=== PATIENT | male | born 1945 | race Caucasian/White ===

== ENCOUNTER 2021-02-20 11:05 | Outpatient (CLI) | payer MEDICARE, OTHER | END 2021-02-20 11:06 | disposition home or self-care (01) | LOC: CSHCT 11:05 | PROVIDERS: ATTEND Nurse Practitioner Family | DX: M25.511 Pain in right shoulder (principal); R93.6 Abnormal findings on diagnostic imaging of limbs ==

== ENCOUNTER 2021-03-17 08:25 | Day surgery (SDC) | payer MEDICARE, OTHER ==
[2021-03-17] MEDS ORDERED: Lidocaine 1% PF 5 ML VIAL ONE (08:44)
[2021-03-17] MEDS ORDERED: Sodium Bicarbonate 2.5 MEQ/5 ML VIAL ONE (08:44)
[2021-03-17 09:08] VITALS: BP 131/87; TEMP 97.4
== END 2021-03-17 10:10 | disposition home or self-care (01) ==
LOC: CSHRAD 08:25
PROVIDERS: ATTEND Neurological Surgery
DX: M54.12 Radiculopathy, cervical region (principal); M54.50 Low back pain, unspecified; M54.2 Cervicalgia; I10 Essential (primary) hypertension; G89.29 Other chronic pain; Z79.899 Other long term (current) drug therapy
CPT/HCPCS: 72040; 72100; 77002

== ENCOUNTER 2021-09-29 12:33 | Outpatient (CLI) | payer MEDICARE | END 2021-09-29 12:34 | disposition home or self-care (01) | LOC: CSHCT 12:33 | PROVIDERS: ATTEND Neurological Surgery | DX: M48.04 Spinal stenosis, thoracic region (principal); M48.062 Spinal stenosis, lumbar region with neurogenic claudication; M51.34 Other intervertebral disc degeneration, thoracic region; M51.24 Other intervertebral disc displacement, thoracic region; Z98.890 Other specified postprocedural states | CPT/HCPCS: 72131; 72157; 72158; 82565 ==

== ENCOUNTER 2022-07-06 08:50 | Day surgery (SDC) | payer MEDICARE ==
[2022-07-01 14:27] VITALS: BMI 29.5
[2022-07-06] MEDS ORDERED: Neomycin-Polymyxin 1 ML AMP ONE (10:21)
[2022-07-06] MEDS ORDERED: Bupivacaine PF 0.5% 30 ML VIAL ONE (10:21)
[2022-07-06] MEDS ORDERED: Clindamycin/D5W 900 mg/50 ml Premix Bag ONE (11:24)
[2022-07-06] MEDS ORDERED: PROPOFOL 20 ML ONE (12:02)
[2022-07-06] MEDS ORDERED: Fentanyl 100 MCG/2 ML VIAL ONE (12:02)
[2022-07-06] MEDS ORDERED: Lidocaine 2% PF 5 ML VIAL ONE (12:02)
[2022-07-06] MEDS ORDERED: Ondansetron PF 4 MG/2 ML Vial ONE (12:03)
[2022-07-06] MEDS ORDERED: Famotidine/PF 20 mg/2ml Vial ONE (12:04)
[2022-07-06] MEDS ORDERED: ePHEDrine Sulfate 50 MG/10 ML VIAL ONE (12:45)
== END 2022-07-06 14:45 | disposition home or self-care (01) ==
LOC: CSHSDC 08:50
PROVIDERS: ATTEND Podiatrist Foot & Ankle Surgery
PROC: 0SGP04Z Fusion of Right Toe Phalangeal Joint with Internal Fixation Device, Open Approach (ICD-10-PCS; principal; 2022-07-06)
DX: Z01.818 Encounter for other preprocedural examination (principal); S92.421A Displaced fracture of distal phalanx of right great toe, initial encounter for closed fracture; M19.171 Post-traumatic osteoarthritis, right ankle and foot; J45.909 Unspecified asthma, uncomplicated; K21.9 Gastro-esophageal reflux disease without esophagitis; E29.1 Testicular hypofunction; Z79.899 Other long term (current) drug therapy
CPT/HCPCS: J2001; J2405; J2704; J3010; J3490; S0020; S0028

== ENCOUNTER 2022-07-27 09:13 | Day surgery (SDC) | payer MEDICARE ==
[2022-07-23 11:35] VITALS: BMI 29.7
[2022-07-27] MEDS ORDERED: Bupivacaine PF 0.5% 30 ML VIAL ONE (11:07)
[2022-07-27] MEDS ORDERED: Neomycin-Polymyxin 1 ML AMP ONE (11:08)
[2022-07-27] MEDS ORDERED: Clindamycin/D5W 600 mg/50 ml Premix Bag ONE (11:15)
[2022-07-27] MEDS ORDERED: Fentanyl 100 MCG/2 ML VIAL ONE (11:38)
[2022-07-27] MEDS ORDERED: PROPOFOL 20 ML ONE (11:38)
[2022-07-27] MEDS ORDERED: Ondansetron PF 4 MG/2 ML Vial ONE (12:12)
== END 2022-07-27 13:30 | disposition home or self-care (01) ==
LOC: CSHSDC 09:13
PROVIDERS: ATTEND Podiatrist Foot & Ankle Surgery
PROC: 0SGP04Z Fusion of Right Toe Phalangeal Joint with Internal Fixation Device, Open Approach (ICD-10-PCS; principal; 2022-07-27)
DX: T84.196A Other mechanical complication of internal fixation device of bone of right lower leg, initial encounter (principal); J45.909 Unspecified asthma, uncomplicated; K21.9 Gastro-esophageal reflux disease without esophagitis; E78.00 Pure hypercholesterolemia, unspecified; J44.9 Chronic obstructive pulmonary disease, unspecified; Z79.899 Other long term (current) drug therapy; Y83.1 Surgical operation with implant of artificial internal device as the cause of abnormal reaction of the patient, or of later complication, without mention of misadventure at the time of the procedure
CPT/HCPCS: J2405; J2704; J3010; J3490; S0020

== ENCOUNTER 2023-02-20 18:27 | Inpatient (IN) | payer MEDICARE ==
[2023-02-20] MEDS ORDERED: Senokot S 8.6-50 MG TAB PO PRN (22:34)
[2023-02-20] MEDS ORDERED: Gabapentin 300 MG CAP PO SCH (22:45)
[2023-02-20] MEDS ORDERED: Vancomycin HCl 750 MG in Sodium Chloride 0.9% 250 ML 250 ML IVPB SCH (22:45)
[2023-02-20] MEDS: Morphine 4 MG/ML VIAL SLOW IVP PRN (22:48)
[2023-02-20] MEDS: HYDROcodone/Acetaminophen 7.5/325 mg Tablet PO PRN (23:06)
[2023-02-20] MEDS: Sodium Chloride 0.9% 1,000 ML IV SCH (23:23)
[2023-02-20 23:25] LABS: Magnesium 1.6 mg/dL (1.6-2.6)
[2023-02-21] MEDS: Clindamycin/D5W 900 MG in Premix 1 BAG IVPB SCH ×3 (00:53→16:04)
[2023-02-21] MEDS ORDERED: traZODone HCl 50 MG TAB PO SCH ×2 (01:30→21:00)
[2023-02-21] MEDS: Morphine 4 MG/ML VIAL SLOW IVP PRN ×3 (02:43→15:47)
[2023-02-21] MEDS: HYDROcodone/Acetaminophen 7.5/325 mg Tablet PO PRN (02:53)
[2023-02-21 05:20] LABS: #Basophils 0.1 10x3/uL (0.0-0.2); #Eosinphils 0.6 10x3/uL (0.0-0.5); #Neutrophils 8.3 10x3/uL (1.5-8.4); %Basophils 0.6 % (0.0-2.0); %Eosinophils 5.3 % (0.0-6.0); %Lymphocytes 10.7 % (18.0-47.0); %Monocytes 9.1 % (0.0-10.0); %Neutrophils 73.9 % (40.0-75.0); Hematocrit 41.3 % (38.8-50.0); Hemoglobin 13.9 g/dL (13.5-17.5); Mean Corpuscular HGB CONC 33.7 g/dL (32.0-36.0); Mean Corpuscular Hemoglobin 34.1 pg (27.0-33.0); Mean Corpuscular Volume 101.2 fl (81.2-95.1); Mean Platelet Volume 10.9 fl (7.4-10.4); Platelet Count 147 10x3/uL (150-450); RBC Distribution Width 14.3 % (11.5-14.5); Red Blood Cell (RBC) Count 4.08 10x6/uL (4.32-5.72); White Blood Cell (WBC) Count 11.2 10x3/uL (3.5-10.5)
[2023-02-21 05:25] LABS: Anion Gap 15 mmol/L (10-20); BUN (Urea Nitrogen) 9 mg/dL (8.4-25.7); Calc. Creatinine Clearance 91 mL/min (70-130); Calcium 8.8 mg/dL (7.8-10.44); Carbon Dioxide 24 mmol/L (23-31); Chloride 103 mmol/L (98-107); Estimated GFR 92; Glucose 98 mg/dL (83-110); Potassium 4.2 mmol/L (3.5-5.1); Sodium 138 mmol/L (136-145)
[2023-02-21] MEDS ORDERED: VANCOMYCIN 1.25 GM/250 ML BAG 1.25 GM in Premix 1 BAG IVPB SCH ×2 (06:00→18:00)
[2023-02-21] MEDS: Aztreonam 1 GM in Sodium Chloride 0.9% 100 ML IVPB SCH ×3 (06:01→20:41)
[2023-02-21] MEDS ORDERED: VANCOMYCIN 1.25 GM/250 ML BAG IVPB SCH ×2 (06:30→09:00)
[2023-02-21] MEDS: VANCOMYCIN 1.75 GM/350 ML BAG 1.75 GM in Premix 1 BAG IVPB SCH (06:52)
[2023-02-21] MEDS: Hydrocodone-Acetamin 15 ML UDCUP PO PRN ×3 (07:40→20:41)
[2023-02-21] MEDS ORDERED: Aztreonam 1 GM in Sodium Chloride 0.9% 100 ML IVPB SCH (08:00)
[2023-02-21 08:20] LABS: Amphetamine Not Detected (NotDetected); Barbiturates Screen Not Detected (NotDetected); Benzodiazepine Screen Not Detected (NotDetected); Cocaine Metabolite Screen Not Detected (NotDetected); Methadone Not Detected (NotDetected); Methamphetamine Detected (NotDetected); Opiate Screen Detected (NotDetected); Oxycodone Screen Not Detected (NotDetected); Phencyclidine (PCP) Not Detected (NotDetected); THC/Cannabinoid Screen Not Detected (NotDetected); Tricyclic Screen Not Detected (NotDetected)
[2023-02-21] MEDS ORDERED: FLU VACC QS2023(65UP)/MF59C/PF 60 MCG/0.5 ML SYRINGE IM ONE (09:00)
[2023-02-21] MEDS ORDERED: Non-Formulary Medication 1 EACH (Mecobalamin [B12 Active] 1,000 MCG Tab.Chew) PO SCH (09:00)
[2023-02-21] MEDS: busPIRone HCl 5 MG TAB PO SCH ×2 (10:07→20:39)
[2023-02-21] MEDS: Gabapentin 300 MG CAP PO SCH ×3 (10:07→20:40)
[2023-02-21] MEDS: DULoxetine 30 MG CAP PO SCH ×2 (10:07→20:40)
[2023-02-21] MEDS: Magnesium Oxide 400 MG TAB PO SCH (10:08)
[2023-02-21] MEDS ORDERED: Colchicine 0.6 MG TAB PO SCH ×2 (10:45→11:45)
[2023-02-21] MEDS: Sodium Chloride 0.9% 1,000 ML IV SCH (12:25)
[2023-02-21 12:47] LABS: Uric Acid 4.4 mg/dL (3.5-7.2)
[2023-02-21] MEDS: traZODone HCl 50 MG TAB PO SCH (20:39)
[2023-02-21] MEDS: Pramipexole Di-HCl 1 MG TAB PO SCH (20:40)
[2023-02-21] MEDS: Tamsulosin HCl 0.4 MG CAP PO SCH (20:40)
[2023-02-21] MEDS: Prazosin HCl 1 MG CAP PO SCH (20:41)
[2023-02-22] MEDS: Clindamycin/D5W 900 MG in Premix 1 BAG IVPB SCH ×3 (00:46→16:49)
[2023-02-22] MEDS: Sodium Chloride 0.9% 1,000 ML IV SCH ×2 (00:49→20:43)
[2023-02-22] MEDS: Aztreonam 1 GM in Sodium Chloride 0.9% 100 ML IVPB SCH ×3 (04:52→20:46)
[2023-02-22] MEDS: Hydrocodone-Acetamin 15 ML UDCUP PO PRN ×3 (05:20→20:49)
[2023-02-22] MEDS: VANCOMYCIN 1.75 GM/350 ML BAG 1.75 GM in Premix 1 BAG IVPB SCH (05:36)
[2023-02-22] MEDS: DULoxetine 30 MG CAP PO SCH ×2 (08:37→20:44)
[2023-02-22] MEDS: Colchicine 0.6 MG TAB PO SCH (08:37)
[2023-02-22] MEDS: busPIRone HCl 5 MG TAB PO SCH ×2 (08:37→20:46)
[2023-02-22] MEDS: Magnesium Oxide 400 MG TAB PO SCH (08:37)
[2023-02-22] MEDS: Gabapentin 300 MG CAP PO SCH ×2 (09:15→17:52)
[2023-02-22] MEDS: Morphine 4 MG/ML VIAL SLOW IVP PRN (12:43)
[2023-02-22] MEDS: LACTINEX 1 TAB PO SCH (17:04)
[2023-02-22] MEDS: traZODone HCl 50 MG TAB PO SCH (20:44)
[2023-02-22] MEDS: Tamsulosin HCl 0.4 MG CAP PO SCH (20:44)
[2023-02-22] MEDS: Prazosin HCl 1 MG CAP PO SCH (20:44)
[2023-02-22] MEDS: Pramipexole Di-HCl 1 MG TAB PO SCH (20:44)
[2023-02-22] MEDS: Gabapentin 100 MG CAP PO SCH (20:45)
[2023-02-22] MEDS ORDERED: Gabapentin 300 MG CAP PO SCH (21:00)
[2023-02-23] MEDS: Clindamycin/D5W 900 MG in Premix 1 BAG IVPB SCH ×3 (00:52→17:00)
[2023-02-23] MEDS: Aztreonam 1 GM in Sodium Chloride 0.9% 100 ML IVPB SCH ×3 (04:41→21:27)
[2023-02-23 04:52] LABS: #Basophils 0.1 10x3/uL (0.0-0.2); #Eosinphils 0.4 10x3/uL (0.0-0.5); #Monocytes 0.9 10x3/uL (0.0-1.1); #Neutrophils 5.9 10x3/uL (1.5-8.4); %Basophils 0.8 % (0.0-2.0); %Eosinophils 5.2 % (0.0-6.0); %Lymphocytes 12.6 % (18.0-47.0); %Monocytes 10.6 % (0.0-10.0); %Neutrophils 70.4 % (40.0-75.0); Hematocrit 39.5 % (38.8-50.0); Hemoglobin 13.4 g/dL (13.5-17.5); Mean Corpuscular HGB CONC 33.9 g/dL (32.0-36.0); Mean Corpuscular Hemoglobin 34.1 pg (27.0-33.0); Mean Corpuscular Volume 100.5 fl (81.2-95.1); Mean Platelet Volume 9.9 fl (7.4-10.4); Platelet Count 141 10x3/uL (150-450); RBC Distribution Width 13.8 % (11.5-14.5); Red Blood Cell (RBC) Count 3.93 10x6/uL (4.32-5.72); White Blood Cell (WBC) Count 8.4 10x3/uL (3.5-10.5)
[2023-02-23 05:07] LABS: Anion Gap 14 mmol/L (10-20); BUN (Urea Nitrogen) 8 mg/dL (8.4-25.7); Calc. Creatinine Clearance 97 mL/min (70-130); Calcium 8.3 mg/dL (7.8-10.44); Carbon Dioxide 27 mmol/L (23-31); Chloride 100 mmol/L (98-107); Estimated GFR 94; Glucose 103 mg/dL (83-110); Potassium 3.7 mmol/L (3.5-5.1); Sodium 137 mmol/L (136-145)
[2023-02-23 05:34] LABS: Prothrombin Time 10.9 sec (9.5-12.1)
[2023-02-23 05:46] LABS: Vancomycin, Trough 10.4 ug/mL
[2023-02-23] MEDS: Vancomycin 1 GM in Sodium Chloride 0.9% 250 ML 250 ML IVPB SCH ×2 (06:18→18:57)
[2023-02-23] MEDS: VANCOMYCIN 1.75 GM/350 ML BAG 1.75 GM in Premix 1 BAG IVPB SCH (06:19)
[2023-02-23] MEDS: Morphine 4 MG/ML VIAL SLOW IVP PRN ×2 (08:40→21:56)
[2023-02-23] MEDS: LACTINEX 1 TAB PO SCH ×3 (08:51→18:57)
[2023-02-23] MEDS: Colchicine 0.6 MG TAB PO SCH (08:51)
[2023-02-23] MEDS: Gabapentin 100 MG CAP PO SCH ×3 (08:52→21:32)
[2023-02-23] MEDS: busPIRone HCl 5 MG TAB PO SCH ×2 (08:52→21:31)
[2023-02-23] MEDS: DULoxetine 30 MG CAP PO SCH ×2 (08:52→21:32)
[2023-02-23] MEDS: Magnesium Oxide 400 MG TAB PO SCH (08:52)
[2023-02-23] MEDS: Sodium Chloride 0.9% 1,000 ML IV SCH ×2 (09:10→21:43)
[2023-02-23 12:54] LABS: Hemoglobin A1c 4.7 % (4.0-6.0)
[2023-02-23] MEDS: Hydrocodone-Acetamin 15 ML UDCUP PO PRN ×2 (13:23→21:54)
[2023-02-23] MEDS ORDERED: Lidocaine 1% PF 5 ML VIAL ONE (15:46)
[2023-02-23] MEDS ORDERED: PROPOFOL 20 ML ONE (15:46)
[2023-02-23] MEDS ORDERED: fentaNYL 50 mcg/mL 1 mL Vial ONE (15:46)
[2023-02-23] MEDS ORDERED: Ondansetron PF 4 MG/2 ML Vial ONE (15:46)
[2023-02-23] MEDS ORDERED: Dexamethasone 4 mg/ml Vial ONE (15:46)
[2023-02-23] MEDS ORDERED: PHENYLEPHRINE-NS 100 MCG/ML 10 ML SYRINGE ONE (16:11)
[2023-02-23] MEDS ORDERED: Bupivacaine PF 0.5% 30 ML VIAL ONE (16:37)
[2023-02-23] MEDS: traZODone HCl 50 MG TAB PO SCH (21:33)
[2023-02-23] MEDS: Prazosin HCl 1 MG CAP PO SCH (21:55)
[2023-02-23] MEDS: Pramipexole Di-HCl 1 MG TAB PO SCH (21:55)
[2023-02-23] MEDS: Tamsulosin HCl 0.4 MG CAP PO SCH (21:58)
[2023-02-24] MEDS: Clindamycin/D5W 900 MG in Premix 1 BAG IVPB SCH ×3 (01:05→16:42)
[2023-02-24] MEDS: Aztreonam 1 GM in Sodium Chloride 0.9% 100 ML IVPB SCH ×3 (04:00→22:04)
[2023-02-24 04:28] LABS: #Basophils 0.1 10x3/uL (0.0-0.2); #Monocytes 0.5 10x3/uL (0.0-1.1); %Basophils 0.8 % (0.0-2.0); %Eosinophils 0.1 % (0.0-6.0); %Lymphocytes 10.6 % (18.0-47.0); %Monocytes 6.1 % (0.0-10.0); %Neutrophils 81.7 % (40.0-75.0); Hematocrit 40.1 % (38.8-50.0); Hemoglobin 13.7 g/dL (13.5-17.5); Mean Corpuscular HGB CONC 34.2 g/dL (32.0-36.0); Mean Corpuscular Volume 99.5 fl (81.2-95.1); Mean Platelet Volume 10.4 fl (7.4-10.4); Platelet Count 167 10x3/uL (150-450); RBC Distribution Width 13.2 % (11.5-14.5); Red Blood Cell (RBC) Count 4.03 10x6/uL (4.32-5.72); White Blood Cell (WBC) Count 7.4 10x3/uL (3.5-10.5)
[2023-02-24 04:43] LABS: Anion Gap 13 mmol/L (10-20); BUN (Urea Nitrogen) 10 mg/dL (8.4-25.7); Calc. Creatinine Clearance 104 mL/min (70-130); Calcium 8.2 mg/dL (7.8-10.44); Carbon Dioxide 27 mmol/L (23-31); Chloride 101 mmol/L (98-107); Estimated GFR 96; Glucose 101 mg/dL (83-110); Sodium 137 mmol/L (136-145)
[2023-02-24] MEDS: Vancomycin 1 GM in Sodium Chloride 0.9% 250 ML 250 ML IVPB SCH ×2 (06:00→17:37)
[2023-02-24] MEDS: Hydrocodone-Acetamin 15 ML UDCUP PO PRN ×4 (06:32→22:02)
[2023-02-24] MEDS: Morphine 4 MG/ML VIAL SLOW IVP PRN (06:33)
[2023-02-24] MEDS: Gabapentin 100 MG CAP PO SCH ×3 (08:46→22:05)
[2023-02-24] MEDS ORDERED: Morphine 4 MG/ML VIAL SLOW IVP SCH ×2 (09:00)
[2023-02-24] MEDS ORDERED: Ketorolac Tromethamine 30 MG/ML VIAL IVP SCH (09:00)
[2023-02-24] MEDS: busPIRone HCl 5 MG TAB PO SCH ×2 (09:16→22:06)
[2023-02-24] MEDS: Colchicine 0.6 MG TAB PO SCH (09:16)
[2023-02-24] MEDS: Magnesium Oxide 400 MG TAB PO SCH (09:16)
[2023-02-24] MEDS: DULoxetine 30 MG CAP PO SCH ×2 (09:16→22:06)
[2023-02-24] MEDS: LACTINEX 1 TAB PO SCH ×3 (09:16→16:43)
[2023-02-24] MEDS: Sodium Chloride 0.9% 1,000 ML IV SCH (12:22)
[2023-02-24] MEDS ORDERED: Polyethylene Glycol 3350 17 GM Packet PO SCH (14:45)
[2023-02-24 17:18] LABS: Vancomycin, Trough 16.1 ug/mL
[2023-02-24] MEDS: Pramipexole Di-HCl 1 MG TAB PO SCH (22:05)
[2023-02-24] MEDS: Tamsulosin HCl 0.4 MG CAP PO SCH (22:05)
[2023-02-24] MEDS: Prazosin HCl 1 MG CAP PO SCH (22:05)
[2023-02-24] MEDS: Senokot S 8.6-50 MG TAB PO SCH (22:06)
[2023-02-24] MEDS: traZODone HCl 50 MG TAB PO SCH (22:06)
[2023-02-25] MEDS: Clindamycin/D5W 900 MG in Premix 1 BAG IVPB SCH ×3 (01:44→16:16)
[2023-02-25] MEDS: Hydrocodone-Acetamin 15 ML UDCUP PO PRN ×4 (02:10→16:17)
[2023-02-25] MEDS: Sodium Chloride 0.9% 1,000 ML IV SCH ×2 (02:10→16:51)
[2023-02-25] MEDS: Aztreonam 1 GM in Sodium Chloride 0.9% 100 ML IVPB SCH ×3 (04:56→20:39)
[2023-02-25] MEDS: Vancomycin 1 GM in Sodium Chloride 0.9% 250 ML 250 ML IVPB SCH ×2 (05:06→17:14)
[2023-02-25] MEDS: LACTINEX 1 TAB PO SCH ×3 (08:05→16:17)
[2023-02-25] MEDS: Polyethylene Glycol 3350 17 GM Packet PO SCH (08:05)
[2023-02-25] MEDS: busPIRone HCl 5 MG TAB PO SCH ×2 (08:05→21:14)
[2023-02-25] MEDS: DULoxetine 30 MG CAP PO SCH ×2 (08:06→21:15)
[2023-02-25] MEDS: Magnesium Oxide 400 MG TAB PO SCH (08:06)
[2023-02-25] MEDS: Gabapentin 100 MG CAP PO SCH ×3 (08:06→21:15)
[2023-02-25] MEDS: Ondansetron ODT 4 MG TAB PO PRN ×2 (16:16→23:12)
[2023-02-25] MEDS: traZODone HCl 50 MG TAB PO SCH (21:14)
[2023-02-25] MEDS: Pramipexole Di-HCl 1 MG TAB PO SCH (21:15)
[2023-02-25] MEDS: Tamsulosin HCl 0.4 MG CAP PO SCH (21:15)
[2023-02-25] MEDS: Prazosin HCl 1 MG CAP PO SCH (21:15)
[2023-02-25 21:20] VITALS: BMI 32.7
[2023-02-25] MEDS: Senokot S 8.6-50 MG TAB PO SCH (21:20)
[2023-02-26] MEDS: Clindamycin/D5W 900 MG in Premix 1 BAG IVPB SCH ×2 (00:53→08:44)
[2023-02-26] MEDS: Aztreonam 1 GM in Sodium Chloride 0.9% 100 ML IVPB SCH ×2 (03:32→12:13)
[2023-02-26 05:22] LABS: Vancomycin, Trough 15.3 ug/mL
[2023-02-26] MEDS: Vancomycin 1 GM in Sodium Chloride 0.9% 250 ML 250 ML IVPB SCH ×2 (06:12→19:10)
[2023-02-26] MEDS: Sodium Chloride 0.9% 1,000 ML IV SCH ×2 (06:12→21:46)
[2023-02-26] MEDS: busPIRone HCl 5 MG TAB PO SCH ×2 (08:44→21:30)
[2023-02-26] MEDS: Magnesium Oxide 400 MG TAB PO SCH (08:44)
[2023-02-26] MEDS: LACTINEX 1 TAB PO SCH ×3 (08:44→16:13)
[2023-02-26] MEDS: DULoxetine 30 MG CAP PO SCH ×2 (08:44→21:29)
[2023-02-26] MEDS: Gabapentin 100 MG CAP PO SCH ×3 (08:44→21:29)
[2023-02-26] MEDS: Polyethylene Glycol 3350 17 GM Packet PO SCH (08:45)
[2023-02-26] MEDS: Hydrocodone-Acetamin 15 ML UDCUP PO PRN ×2 (08:57→21:31)
[2023-02-26] MEDS: Tamsulosin HCl 0.4 MG CAP PO SCH (21:30)
[2023-02-26] MEDS: Senokot S 8.6-50 MG TAB PO SCH (21:30)
[2023-02-26] MEDS: traZODone HCl 50 MG TAB PO SCH (21:30)
[2023-02-26] MEDS: Prazosin HCl 1 MG CAP PO SCH (21:31)
[2023-02-26] MEDS: Pramipexole Di-HCl 1 MG TAB PO SCH (21:47)
[2023-02-27 06:28] LABS: Anion Gap 13 mmol/L (10-20); BUN (Urea Nitrogen) 5 mg/dL (8.4-25.7); CRP (Inflammatory) 1.36 mg/dL (= or < 0.5); Calc. Creatinine Clearance 120 mL/min (70-130); Calcium 8.9 mg/dL (7.8-10.44); Carbon Dioxide 25 mmol/L (23-31); Chloride 104 mmol/L (98-107); Estimated GFR 95; Glucose 88 mg/dL (83-110); Potassium 3.1 mmol/L (3.5-5.1); Sodium 139 mmol/L (136-145)
[2023-02-27] MEDS: Vancomycin 1 GM in Sodium Chloride 0.9% 250 ML 250 ML IVPB SCH ×2 (07:10→18:38)
[2023-02-27] MEDS: Hydrocodone-Acetamin 15 ML UDCUP PO PRN ×4 (07:10→20:15)
[2023-02-27] MEDS ORDERED: Electrolyte Replacement Protocol 1 EACH FS PRN (07:39)
[2023-02-27] MEDS ORDERED: hydrALAZINE 20 MG/ML VIAL SLOW IVP PRN (07:41)
[2023-02-27] MEDS: Gabapentin 100 MG CAP PO SCH ×3 (08:30→20:13)
[2023-02-27] MEDS: LACTINEX 1 TAB PO SCH ×3 (08:30→16:06)
[2023-02-27] MEDS: Magnesium Oxide 400 MG TAB PO SCH (08:30)
[2023-02-27] MEDS: DULoxetine 30 MG CAP PO SCH ×2 (08:30→20:15)
[2023-02-27] MEDS: busPIRone HCl 5 MG TAB PO SCH ×2 (08:30→20:15)
[2023-02-27] MEDS: Polyethylene Glycol 3350 17 GM Packet PO SCH (08:31)
[2023-02-27 09:00] LABS: Magnesium 1.7 mg/dL (1.6-2.6)
[2023-02-27] MEDS ORDERED: Potassium Chloride 20 MEQ TAB PO SCH ×2 (09:00→16:30)
[2023-02-27] MEDS ORDERED: Amlodipine 5 MG TAB PO SCH (09:00)
[2023-02-27] MEDS ORDERED: Magnesium 2 GM/50 ML(in water) 2 GM in Premix 1 BAG IVPB SCH (11:00)
[2023-02-27] MEDS: Ibuprofen 600 MG TAB PO PRN (11:20)
[2023-02-27 15:05] LABS: Potassium 3.2 mmol/L (3.5-5.1)
[2023-02-27] MEDS: Senokot S 8.6-50 MG TAB PO SCH (20:12)
[2023-02-27] MEDS: Pramipexole Di-HCl 1 MG TAB PO SCH (20:13)
[2023-02-27] MEDS: Prazosin HCl 1 MG CAP PO SCH (20:13)
[2023-02-27] MEDS: Tamsulosin HCl 0.4 MG CAP PO SCH (20:14)
[2023-02-27] MEDS: traZODone HCl 50 MG TAB PO SCH (20:14)
[2023-02-28] MEDS: Hydrocodone-Acetamin 15 ML UDCUP PO PRN ×5 (04:28→21:01)
[2023-02-28] MEDS: Vancomycin 1 GM in Sodium Chloride 0.9% 250 ML 250 ML IVPB SCH ×2 (06:07→17:18)
[2023-02-28 07:41] LABS: Potassium 3.7 mmol/L (3.5-5.1)
[2023-02-28 07:49] LABS: Phosphorus 3.1 mg/dL (2.3-4.7)
[2023-02-28] MEDS ORDERED: Magnesium 2 GM/50 ML(in water) 2 GM in Premix 1 BAG IVPB SCH (09:00)
[2023-02-28] MEDS: Magnesium Oxide 400 MG TAB PO SCH (09:35)
[2023-02-28] MEDS: busPIRone HCl 5 MG TAB PO SCH ×2 (09:35→21:03)
[2023-02-28] MEDS: DULoxetine 30 MG CAP PO SCH ×2 (09:36→21:03)
[2023-02-28] MEDS: LACTINEX 1 TAB PO SCH ×3 (09:36→17:19)
[2023-02-28] MEDS: Gabapentin 100 MG CAP PO SCH ×3 (09:36→21:03)
[2023-02-28] MEDS: Polyethylene Glycol 3350 17 GM Packet PO SCH (09:41)
[2023-02-28 17:40] LABS: Vancomycin, Trough 16.3 ug/mL
[2023-02-28] MEDS: traZODone HCl 50 MG TAB PO SCH (21:02)
[2023-02-28] MEDS: Senokot S 8.6-50 MG TAB PO SCH (21:03)
[2023-02-28] MEDS: Pramipexole Di-HCl 1 MG TAB PO SCH (21:03)
[2023-02-28] MEDS: Tamsulosin HCl 0.4 MG CAP PO SCH (21:03)
[2023-02-28] MEDS: Prazosin HCl 1 MG CAP PO SCH (21:04)
[2023-03-01] MEDS: Hydrocodone-Acetamin 15 ML UDCUP PO PRN ×6 (00:59→22:05)
[2023-03-01] MEDS: Vancomycin 1 GM in Sodium Chloride 0.9% 250 ML 250 ML IVPB SCH ×2 (05:42→20:55)
[2023-03-01 07:09] LABS: #Basophils 0.1 10x3/uL (0.0-0.2); #Eosinphils 0.5 10x3/uL (0.0-0.5); #Monocytes 0.8 10x3/uL (0.0-1.1); #Neutrophils 3.4 10x3/uL (1.5-8.4); %Basophils 1.9 % (0.0-2.0); %Eosinophils 7.2 % (0.0-6.0); %Lymphocytes 32.5 % (18.0-47.0); %Monocytes 10.4 % (0.0-10.0); Hematocrit 44.5 % (38.8-50.0); Hemoglobin 15.3 g/dL (13.5-17.5); Mean Corpuscular HGB CONC 34.4 g/dL (32.0-36.0); Mean Corpuscular Hemoglobin 32.9 pg (27.0-33.0); Mean Corpuscular Volume 95.7 fl (81.2-95.1); Platelet Count 215 10x3/uL (150-450); RBC Distribution Width 13.9 % (11.5-14.5); Red Blood Cell (RBC) Count 4.65 10x6/uL (4.32-5.72); White Blood Cell (WBC) Count 7.2 10x3/uL (3.5-10.5)
[2023-03-01 07:56] LABS: Anion Gap 14 mmol/L (10-20); BUN (Urea Nitrogen) 5 mg/dL (8.4-25.7); Calc. Creatinine Clearance 109 mL/min (70-130); Calcium 9.5 mg/dL (7.8-10.44); Carbon Dioxide 23 mmol/L (23-31); Chloride 107 mmol/L (98-107); Estimated GFR 92; Glucose 101 mg/dL (83-110); Magnesium 2.2 mg/dL (1.6-2.6); Potassium 3.7 mmol/L (3.5-5.1); Sodium 140 mmol/L (136-145)
[2023-03-01] MEDS ORDERED: Iopamidol 300 61% 100 ML VIAL FS ONE (09:15)
[2023-03-01] MEDS: Polyethylene Glycol 3350 17 GM Packet PO SCH (10:03)
[2023-03-01] MEDS: DULoxetine 30 MG CAP PO SCH ×2 (10:34→20:53)
[2023-03-01] MEDS: Gabapentin 100 MG CAP PO SCH ×3 (10:35→20:53)
[2023-03-01] MEDS: LACTINEX 1 TAB PO SCH ×3 (10:35→18:29)
[2023-03-01] MEDS: Magnesium Oxide 400 MG TAB PO SCH (10:35)
[2023-03-01] MEDS: busPIRone HCl 5 MG TAB PO SCH ×2 (10:36→20:52)
[2023-03-01] MEDS: Ibuprofen 600 MG TAB PO PRN (20:51)
[2023-03-01] MEDS: Prazosin HCl 1 MG CAP PO SCH (20:52)
[2023-03-01] MEDS: Tamsulosin HCl 0.4 MG CAP PO SCH (20:53)
[2023-03-01] MEDS: Pramipexole Di-HCl 1 MG TAB PO SCH (20:54)
[2023-03-01] MEDS: traZODone HCl 50 MG TAB PO SCH (22:04)
[2023-03-01] MEDS: Senokot S 8.6-50 MG TAB PO SCH (22:10)
[2023-03-02] MEDS: Hydrocodone-Acetamin 15 ML UDCUP PO PRN ×3 (02:35→11:46)
[2023-03-02] MEDS: Ibuprofen 600 MG TAB PO PRN (04:22)
[2023-03-02] MEDS: Polyethylene Glycol 3350 17 GM Packet PO SCH (08:51)
[2023-03-02] MEDS: LACTINEX 1 TAB PO SCH ×3 (09:00→11:48)
[2023-03-02] MEDS: Vancomycin 1 GM in Sodium Chloride 0.9% 250 ML 250 ML IVPB SCH (09:06)
[2023-03-02] MEDS: busPIRone HCl 5 MG TAB PO SCH (09:07)
[2023-03-02] MEDS: Magnesium Oxide 400 MG TAB PO SCH (09:07)
[2023-03-02] MEDS: Gabapentin 100 MG CAP PO SCH (09:09)
[2023-03-02] MEDS: DULoxetine 30 MG CAP PO SCH (09:09)
[2023-03-02 12:58] VITALS: BP 148/94; TEMP 98.1
== END 2023-03-02 13:30 | disposition home health service (06) | DRG 504 ==
LOC: CSHTELE 21:19
PROVIDERS: ADMIT Internal Medicine; ATTEND Internal Medicine
PROC: 3E03329 Introduction of Other Anti-infective into Peripheral Vein, Percutaneous Approach (ICD-10-PCS; 2023-02-20)
PROC: 0Y6P0Z1 Detachment at Right 1st Toe, High, Open Approach (ICD-10-PCS; principal; 2023-02-24)
PROC: 02HV33Z Insertion of Infusion Device into Superior Vena Cava, Percutaneous Approach (ICD-10-PCS; 2023-03-01)
PROC: B5181ZA Fluoroscopy of Superior Vena Cava using Low Osmolar Contrast, Guidance (ICD-10-PCS; 2023-03-01)
DX: M86.8X8 Other osteomyelitis, other site (principal); R78.81 Bacteremia; L03.031 Cellulitis of right toe; K21.9 Gastro-esophageal reflux disease without esophagitis; N40.0 Benign prostatic hyperplasia without lower urinary tract symptoms; J44.9 Chronic obstructive pulmonary disease, unspecified; Z91.040 Latex allergy status; Z88.0 Allergy status to penicillin; Z96.653 Presence of artificial knee joint, bilateral; Z90.89 Acquired absence of other organs; Z79.899 Other long term (current) drug therapy; F41.9 Anxiety disorder, unspecified; F32.A Depression, unspecified; F15.10 Other stimulant abuse, uncomplicated; K59.00 Constipation, unspecified; Z22.322 Carrier or suspected carrier of Methicillin resistant Staphylococcus aureus; B95.62 Methicillin resistant Staphylococcus aureus infection as the cause of diseases classified elsewhere
CPT/HCPCS: 36415; 36569; 80048; 80202; 80306; 82565; 83036; 83735; 84100; 84132; 84520; 84550; 85025; 85610; 86140; 87040; 87070; 87077; 87186; 87205; 88305; 88311; 93306; C1751; J0457; J1100; J1650; J1885; J2270; J2405; J2704; J3010; J3370; J3475; J3490; J7050; Q0162; Q9967; S0020

== ENCOUNTER 2024-02-11 09:16 | Outpatient (CLI) | payer MEDICARE | END 2024-02-11 09:17 | disposition home or self-care (01) | LOC: CSHWCC 09:16 | PROVIDERS: ATTEND Nurse Practitioner Family | DX: L02.414 Cutaneous abscess of left upper limb (principal) | CPT/HCPCS: 11042 ==

== ENCOUNTER 2024-02-16 12:14 | Outpatient (CLI) | payer MEDICARE | END 2024-02-16 12:15 | disposition home or self-care (01) | LOC: CSHWCC 12:14 | PROVIDERS: ATTEND Nurse Practitioner Family | DX: L02.414 Cutaneous abscess of left upper limb (principal) | CPT/HCPCS: 11042 ==

== ENCOUNTER 2024-02-23 15:29 | Outpatient (CLI) | payer MEDICARE | END 2024-02-23 15:30 | disposition home or self-care (01) | LOC: CSHWCC 15:29 | PROVIDERS: ATTEND Nurse Practitioner Family | DX: L02.414 Cutaneous abscess of left upper limb (principal) | CPT/HCPCS: 99212; G0463 ==

== ENCOUNTER → 2024-03-22 | Outpatient (CLI) | payer MEDICARE | LOC: CSHMRI 11:01 | PROVIDERS: ATTEND Family Medicine | DX: M47.22 Other spondylosis with radiculopathy, cervical region (principal); Z98.1 Arthrodesis status; G95.9 Disease of spinal cord, unspecified | CPT/HCPCS: 72040; 72141 ==

== ENCOUNTER 2024-04-07 07:02 | Day surgery (SDC) | payer OTHER ==
[2024-04-06 12:01] VITALS: BMI 29.0
[2024-04-07] MEDS ORDERED: Bupivacaine PF 0.5% 30 ML VIAL ONE (08:05)
[2024-04-07] MEDS ORDERED: CEFAZOLIN 2 GM VIAL ONE (08:05)
[2024-04-07] MEDS ORDERED: Ipratropium/Albuterol 3 ML NEB ONE (08:12)
[2024-04-07] MEDS: Ipratropium/Albuterol 3 ML NEB NEB SCH (08:15)
[2024-04-07] MEDS ORDERED: Ondansetron PF 4 MG/2 ML Vial ONE (08:26)
[2024-04-07] MEDS ORDERED: Dexamethasone 20 MG/5 ML VIAL ONE (08:26)
[2024-04-07] MEDS ORDERED: PROPOFOL 20 ML ONE (08:27)
[2024-04-07] MEDS ORDERED: Lidocaine 2% PF 5 ML VIAL ONE (08:27)
[2024-04-07] MEDS ORDERED: fentaNYL 50 mcg/mL 1 mL Vial ONE ×2 (09:07→09:59)
[2024-04-07] MEDS ORDERED: HYDROcodone/Acetaminophen 5/325 mg Tablet ONE (10:28)
== END 2024-04-07 11:05 | disposition home or self-care (01) ==
LOC: CSHSDC 07:02
PROVIDERS: ATTEND Podiatrist Foot & Ankle Surgery
PROC: 2W5 Placement, Anatomical Regions, Removal (ICD-10-PCS; principal; 2024-04-07)
DX: T84.293A Other mechanical complication of internal fixation device of bones of foot and toes, initial encounter (principal); K21.9 Gastro-esophageal reflux disease without esophagitis; E78.00 Pure hypercholesterolemia, unspecified; J44.1 Chronic obstructive pulmonary disease with (acute) exacerbation; R09.02 Hypoxemia; E03.9 Hypothyroidism, unspecified; Y83.9 Surgical procedure, unspecified as the cause of abnormal reaction of the patient, or of later complication, without mention of misadventure at the time of the procedure; Z79.01 Long term (current) use of anticoagulants; Z79.899 Other long term (current) drug therapy; Z79.890 Hormone replacement therapy; Z79.51 Long term (current) use of inhaled steroids; Z98.890 Other specified postprocedural states; Z91.040 Latex allergy status
CPT/HCPCS: 93005; 93010; 94640; J0665; J1100; J2405; J2704; J3010; J7620

== ENCOUNTER 2024-11-17 12:16 | Day surgery (SDC) | payer MEDICARE ==
[2024-11-16 12:35] VITALS: BMI 30.7
[2024-11-17] MEDS ORDERED: PROPOFOL 20 ML ONE (14:35)
[2024-11-17] MEDS ORDERED: Lidocaine 1% PF 5 ML VIAL ONE (14:36)
[2024-11-17] MEDS ORDERED: HYDROcodone/Acetaminophen 5/325 mg Tablet ONE (15:47)
== END 2024-11-17 16:05 | disposition home or self-care (01) ==
LOC: CSHSDC 12:16
PROVIDERS: ATTEND Podiatrist Foot & Ankle Surgery
PROC: 0Y6R0Z1 Detachment at Right 2nd Toe, High, Open Approach (ICD-10-PCS; principal; 2024-11-17)
DX: M20.41 Other hammer toe(s) (acquired), right foot (principal); E78.5 Hyperlipidemia, unspecified; E03.9 Hypothyroidism, unspecified; Z96.652 Presence of left artificial knee joint; Z91.040 Latex allergy status; Z88.0 Allergy status to penicillin; Z79.899 Other long term (current) drug therapy
CPT/HCPCS: 28160; 73620; J2704